=== PATIENT | male | born 1965 | race Caucasian/White ===

== ENCOUNTER 2022-10-09 20:50 | Emergency (ER) | payer SELFPAY ==
[~2022-10-09] VITALS: Ht 167.6 cm; Wt 90.7 kg
[2022-10-09 21:35] VITALS: BP 132/90
--- NOTE | 2022-10-09 21:38 | NUR ---
TO LOBBY A/W BED AMBULATORY
[2022-10-10] MEDS ORDERED: methocarbamoL 500 MG TAB PO STA (00:07)
[2022-10-10] MEDS ORDERED: GABAPENTIN 300 MG CAP PO ONE (00:10)
[2022-10-10] MEDS ORDERED: KETOROLAC 15 MG/ML VIAL IM ONE (00:10)
--- NOTE | 2022-10-10 00:15 | NUR ---
PT CAME WITH BACK PAIN 10/10, PAT FEELS CANT STAND UP. HE IS ALERT AND ORIENTED X4.
[2022-10-10 00:42] VITALS: BP 132/90
[2022-10-10] MEDS ORDERED: METH-1681 PO (00:52)
[2022-10-10] MEDS ORDERED: LID5T TP (00:52)
[2022-10-10] MEDS ORDERED: GABA300C PO (00:52)
--- NOTE | 2022-10-10 00:59 | NUR ---
Patient discharged with v/s stable. Written and verbal after care instructions given and explained. Patient verbalized understanding. Ambulatory with steady gait. All questions addressed prior to discharge. Advised to follow up with PMD. PT LEFT WITH HIS BELONGINGS.
[2022-10-11] MEDS ORDERED: KETOROLAC 15 MG/ML VIAL ONE (02:24)
[2022-10-11] MEDS ORDERED: GABAPENTIN 300 MG CAP ONE (02:25)
[2022-10-11] MEDS ORDERED: PRED20TA5 PO ×3 (07:36→10:58)
[2022-10-11] MEDS ORDERED: ACET-5629 PO ×3 (07:36→10:58)
[2022-10-11] MEDS ORDERED: DOXY-690 PO ×3 (07:36→10:58)
== END 2022-10-10 00:59 | disposition home or self-care (01) ==
LOC: MED 20:50
DX: M54.17 Radiculopathy, lumbosacral region (principal); M25.552 Pain in left hip
CPT/HCPCS: 73502; 96372; 99283; J1885

== ENCOUNTER 2022-10-11 01:11 | Emergency (ER) | payer SELFPAY ==
[~2022-10-11] VITALS: Ht 167.6 cm; Wt 90.7 kg
[~2022-10-11 01:11] MED LIST: GABA300C PO; LID5T TP; METH-1681 PO
[2022-10-11 01:20] VITALS: BP 144/99
--- NOTE | 2022-10-11 01:21 | NUR ---
PT TO BED #8
[2022-10-11] MEDS ORDERED: methocarbamoL 500 MG TAB PO STA (01:36)
[2022-10-11] MEDS ORDERED: KETOROLAC 15 MG/ML VIAL IM ONE (01:40)
[2022-10-11] MEDS ORDERED: ACETAMINOPHEN 325 MG TAB PO ONE (01:40)
[2022-10-11 03:10] LABS: APPEARANCE,URINE CLEAR (CLEAR); BILIRUBIN,URINE NEGATIVE (NEGATIVE); BLOOD, URINE NEGATIVE (NEGATIVE); COLOR,URINE YELLOW (YELLOW); LEUKOCYTE ESTERASE ,URINE NEGATIVE (NEGATIVE); NITRITE, URINE NEGATIVE (NEGATIVE); UGLUCOSE NEGATIVE (NEGATIVE)
[2022-10-11 03:25] LABS: BARBITURATE, URINE NEGATIVE ng/ml (NEG <=200); BENZODIAZEPINE, URINE NEGATIVE ng/mL (NEG <=200); CANNABINOID, URINE NEGATIVE ng/mL (NEG <=50); COCAINE, URINE NEGATIVE ng/mL (NEG <=300); OPIATE, URINE POSITIVE ng/mL (NEG <=2000); PHENCYCLIDINE SCREEN,URINE NEGATIVE ng/mL (NEG <=25)
[2022-10-11 03:30] LABS: RBC,URINE 0-5 /HPF (0-5); WBC,URINE 0-5 /HPF (0-5)
--- NOTE | 2022-10-11 03:48 | NUR ---
PT IS HERE NOW SINCE HE GOT DISCHARGE YESTERDAY AND EVALUATING FOR BACK PAIN TO LOWER EXTRIMETIS AND ALSO COMPALAINING ABOUT ABD PAIN WELL. PT SAID HE HAD SPINAL MENIGITIS 5 YEARS AGO WHEN HE WAS IN ALF.
--- NOTE | 2022-10-11 03:50 | NUR ---
PT IS AMBULATORY AND WENT TO THE RESTROOM.
[2022-10-11] MEDS ORDERED: NACL 0.9% 1,000 ML IV ONE (05:05)
--- NOTE | 2022-10-11 05:37 | NUR ---
20G IV CATH PLACE IN R WRIST. LABS OBTAINED AND SENT TO LAB
[2022-10-11 05:44] LABS: BASOPHILS % (AUTO) 0.3 % (0.0-2.0); EOSINOPHILS # (AUTO) 0.2 K/uL (0-0.4); EOSINOPHILS % (AUTO) 2.2 % (0.0-4.0); HEMOGLOBIN 12.6 g/dL (12.0-18.0); MEAN CORPUSCULAR HEMOGLOBIN 29 pg (27-31); MEAN CORPUSCULAR HGB CONC 33 g/dL (33-37); MEAN CORPUSCULAR VOLUME 85.8 fL (80-94); MONOCYTES # (AUTO) 0.4 K/uL (0.8-1.0); NEUTROPHILS # (AUTO) 9.4 K/uL (1.8-7.7); PLATELET COUNT (AUTO) 206 K/uL (140-450); RED BLOOD CELL COUNT(AUTO) 4.42 MIL/uL (4.20-6.10); RED CELL DISTRIBUTION WIDTH 13.6 % (11.6-13.7); WHITE BLOOD COUNT (AUTO) 11.2 K/uL (4.8-10.8)
[2022-10-11 06:25] LABS: ALBUMIN 4.2 g/dL (3.4-5.0); ANION GAP 11.5 (8-16); CARBON DIOXIDE 29.2 mmol/L (21-32); CREATININE 0.7 mg/dL (0.6-1.3); POTASSIUM 3.7 mmol/L (3.5-5.1); TOTAL BILIRUBIN 0.9 mg/dL (0.0-1.0)
--- NOTE | 2022-10-11 06:26 | NUR ---
PT IS RESTING ON THE BED. WE ARE STILL WAITING FOR CT SCAN RESULT.
[2022-10-11 06:54] LABS: LYMPHOCYTES % (AUTO) 9.3 % (20.5-51.1); NEUTROPHILS % (AUTO) 84.2 % (42.2-75.2)
[2022-10-11] MEDS ORDERED: traMADol 50 MG TAB PO ONE (07:05)
--- NOTE | 2022-10-11 07:30 | NUR ---
REPORT RECEIVED FROM JAMEL SHARP . ASSUMED CARE AT THIS TIME.
[2022-10-11] MEDS ORDERED: ACET-5629 PO ×3 (07:36→10:58)
[2022-10-11] MEDS ORDERED: PRED20TA5 PO ×3 (07:36→10:58)
[2022-10-11] MEDS ORDERED: DOXY-690 PO ×3 (07:36→10:58)
--- NOTE | 2022-10-11 08:00 | NUR ---
IV removed, catheter intact and site benign. Applied folded 4x4 gauze and tape to stop bleeding.
[2022-10-11 08:02] VITALS: BP 131/84
--- NOTE | 2022-10-11 08:02 | NUR ---
Patient discharged with v/s stable. Written and verbal after care instructions FOR PNEUMONIA AND SPINAL STENOSIS given and explained. Patient alert, oriented and verbalized understanding of instructions. Ambulatory with steady gait. All questions addressed prior to discharge. ID band removed. Patient advised to follow up with PMD. Rx of OXYCODONE AND PREDNISONE given. Opportunity to ask questions provided and answered.
== END 2022-10-11 08:02 | disposition home or self-care (01) ==
LOC: MED 01:11
DX: M54.17 Radiculopathy, lumbosacral region (principal)
CPT/HCPCS: 36415; 72131; 74176; 80053; 80305; 81001; 85025; 96360; 96361; 96372; 99285; J7030; 81025

== ENCOUNTER 2022-10-16 17:19 | Emergency (ER) | payer SELFPAY ==
[~2022-10-16] VITALS: Ht 167.6 cm; Wt 90.7 kg
[~2022-10-16 17:19] MED LIST changes: +ACET-5629 PO; +DOXY-690 PO; +PRED20TA5 PO
[2022-10-16 17:31] VITALS: BP 139/96
--- NOTE | 2022-10-16 17:33 | NUR ---
57/M REQUESTING MED REFILL FOR PAIN MED FOR SCIATICA PAIN. PT WAS SEEN HERE RECENTLY FOR SAME S/SX AND WAS PX MEDS. PT REPORTS RUNNING OUT OF MEDS AND IS UNABLE TO REACH HIS PCP. PMH: JOSEIES
[2022-10-16] MEDS ORDERED: KETOROLAC 30 MG/ML VIAL IM ONE (18:35)
[2022-10-16] MEDS ORDERED: GABAPENTIN 300 MG CAP PO ONE (18:35)
[2022-10-16] MEDS ORDERED: methocarbamoL 500 MG TAB PO SCH (18:35)
[2022-10-16] MEDS ORDERED: GABA300C PO (19:12)
[2022-10-16] MEDS ORDERED: METH-1681 PO (19:12)
[2022-10-16] MEDS ORDERED: LIDO1ADH38 TP (19:12)
[2022-10-16] MEDS ORDERED: IBUP-2213 PO (19:12)
[2022-10-16 19:41] VITALS: BP 139/96
--- NOTE | 2022-10-16 19:41 | NUR ---
Patient discharged with v/s stable. Written and verbal after care instructions given and explained. Patient alert, oriented and verbalized understanding of instructions. Ambulatory with steady gait. All questions addressed prior to discharge. ID band removed. Patient advised to follow up with PMD. Rx of GABAPENTIN, IBUPROFEN, LIDOCAINE, ROBAXIN given. Patient educated on indication of medication including possible reaction and side effects. Opportunity to ask questions provided and answered.
== END 2022-10-16 19:41 | disposition home or self-care (01) ==
LOC: MED 17:19
DX: M54.16 Radiculopathy, lumbar region (principal); Z76.0 Encounter for issue of repeat prescription
CPT/HCPCS: 96372; 99283; J1885

== ENCOUNTER 2022-10-19 13:18 | Emergency (ER) | payer SELFPAY ==
[~2022-10-19] VITALS: Ht 167.6 cm; Wt 90.7 kg
[~2022-10-19 13:18] MED LIST changes: +IBUP-2213 PO; +LIDO1ADH38 TP
[2022-10-19 13:41] VITALS: BP 130/82
[2022-10-19] MEDS ORDERED: KETOROLAC 30 MG/ML VIAL IM ONE (14:10)
[2022-10-19] MEDS ORDERED: IBUP-2213 PO (15:03)
[2022-10-19] MEDS ORDERED: HYDR-5080 PO ×2 (15:03→15:05)
[2022-10-19] MEDS ORDERED: LIDO1ADH38 TP (15:05)
[2022-10-19] MEDS ORDERED: GABA300C PO (15:05)
[2022-10-19] MEDS ORDERED: METH-1681 PO (15:05)
--- NOTE | 2022-10-19 15:11 | NUR ---
R SHORT LEG POSTERIOR APPLIED TO R LOWER LEG. CHRISTOPHER WRAP X 2. PT GIVEN CRUTCHES AND RETURNED SAFE DEMONSTRATION.
--- NOTE | 2022-10-19 15:17 | NUR ---
57 Y/O MALE BIB C/O RIGHT ANKLE PAIN X1 DAY S/P TRYING TO STABILIZE A SCOOTER. PER PT HE WAS RIDING A SCOOTER WHEN HE PUT HIS FOOT DOWN TO TRY AND MAKE IT SLOW DOWN. FELT HIS ANKLE TWIST. DENIES SCOOTER RUNNING OVER FOOT NKA PMH: DENIES
== END 2022-10-19 15:21 | disposition home or self-care (01) ==
LOC: MED 13:18
DX: S82.51XA Displaced fracture of medial malleolus of right tibia, initial encounter for closed fracture (principal); I10 Essential (primary) hypertension; Z79.899 Other long term (current) drug therapy; V89.9XXA Person injured in unspecified vehicle accident, initial encounter; Y93.89 Activity, other specified; Y92.89 Other specified places as the place of occurrence of the external cause; Y99.8 Other external cause status
CPT/HCPCS: 29515; 73610; 96372; 99283; J1885

== ENCOUNTER 2023-10-28 17:54 | Emergency (ER) | payer MEDICAID, OTHER ==
[~2023-10-28] VITALS: Ht 167.6 cm; Wt 81.6 kg
[~2023-10-28 17:54] MED LIST changes: +HYDR-5080 PO
[2023-10-28 18:05] VITALS: BP 130/73; PULSE 81; RESP 18; TEMP 98.3; O2SAT 97
[2023-10-28] MEDS: LIDOCAINE/EPI MPF 2%1:200000 10 ML VIAL INJ ONE (19:02)
[2023-10-28 20:17] VITALS: BP 130/73; PULSE 81; RESP 18; TEMP 98.3; O2SAT 97
[2023-10-28] MEDS ORDERED: DOXY-690 PO (20:50)
== END 2023-10-28 20:15 | disposition left against medical advice (07) ==
LOC: MED 17:54
DX: L02.416 Cutaneous abscess of left lower limb (principal); L03.115 Cellulitis of right lower limb; F11.10 Opioid abuse, uncomplicated; I10 Essential (primary) hypertension; Z79.899 Other long term (current) drug therapy
CPT/HCPCS: 10060; 99283; J2001

== ENCOUNTER 2023-11-08 21:14 | Emergency (ER) | payer OTHER ==
[~2023-11-08] VITALS: Ht 162.6 cm; Wt 88.9 kg
[2023-11-08 21:34] VITALS: BP 130/80; PULSE 90; RESP 16; TEMP 98.3; O2SAT 96
[2023-11-08 22:51] VITALS: BP 130/80; PULSE 90; RESP 16; TEMP 98.3; O2SAT 96
[2023-11-09] MEDS: LIDOCAINE MPF 1% 10 MG/ML VIAL INJ ONE (01:00)
[2023-11-09] MEDS ORDERED: SULF-58 PO (02:06)
[2023-11-09] MEDS: SULFAMETH/TRIMETH DS 800/160MG 1 TAB PO ONE (02:14)
== END 2023-11-09 02:13 | disposition home or self-care (01) ==
LOC: MED 21:14
DX: L02.414 Cutaneous abscess of left upper limb (principal); L03.114 Cellulitis of left upper limb; I10 Essential (primary) hypertension; F17.200 Nicotine dependence, unspecified, uncomplicated; F11.90 Opioid use, unspecified, uncomplicated; Z79.899 Other long term (current) drug therapy; Z71.6 Tobacco abuse counseling
CPT/HCPCS: 73060; 73090; 96372; 99284; J2001

== ENCOUNTER 2024-05-21 23:37 | Emergency (ER) | payer OTHER ==
[~2024-05-21] VITALS: Ht 167.6 cm; Wt 79.8 kg
[~2024-05-21 23:37] MED LIST changes: +SULF-58 PO
[2024-05-21 23:59] VITALS: BP 138/93; PULSE 98; RESP 16; TEMP 97.6; O2SAT 99
[2024-05-22 00:12] VITALS: BP 149/84; PULSE 99; RESP 16; TEMP 97.6
[2024-05-22 00:14] VITALS: O2SAT 99
== END 2024-05-22 00:54 | disposition left against medical advice (07) ==
LOC: MED 23:37
DX: R19.03 Right lower quadrant abdominal swelling, mass and lump (principal); I10 Essential (primary) hypertension; F15.90 Other stimulant use, unspecified, uncomplicated; Z79.899 Other long term (current) drug therapy
CPT/HCPCS: 99281